=== PATIENT | male | born 1965 | race Caucasian/White ===

== ENCOUNTER 2017-01-01 07:30 | Day surgery (SDC) | payer OTHER ==
[2017-01-01 08:03] VITALS: BMI 24.7
[2017-01-01 08:23] VITALS: O2SAT 100
--- NOTE | 2017-01-01 08:51 | CP.SDSHP ---
Same Day Surgery H & P - History Proposed Procedure: EGD Pre-Op Diagnosis: SEE NOTES - Previous Medical/Surgical History Misc: Other Pain: 4.Moderate Pain - Allergies Allergies: Allergies doxycycline [From Vibramycin] Allergy (Verified 01/01/17 08:03) RASH - Physical Exam General Appearance: N Vital Signs: Vital Signs 01/01/17 08:01 Temperature 97.5 F L Pulse Rate 73 Respiratory 19 Rate Blood Pressure 109/74 O2 Sat by Pulse 100 Oximetry Mental Status: Alert & Oriented x3 Neuro: WNL Heart: WNL Lungs: WNL GI: Other - {Optional Preform as Required} Breast: WNL Abdomen: Other Rectal: Other Integument: WNL : WNL Ortho: WNL ENT: WNL - Impression Pt. Evaluated Today:Candidate for Anesthesia & Procedure: Yes - Date & Time Time: 08:51 Short Stay Discharge - Short Stay Discharge Admitting Diagnosis/Reason for Visit: FUNCTIONAL DYSPEPSIA Disposition: HOME/ ROUTINE
[2017-01-01] MEDS ORDERED: Lidocaine Hydrochloride 5 ML INJ ONE (08:52)
[2017-01-01] MEDS ORDERED: Propofol 10 mg/ml Inj (20 ML) ONE (08:52)
[2017-01-01] MEDS ORDERED: Belladonna-Phenobarbital PO ONE (09:30)
[2017-01-01] MEDS ORDERED: Pantoprazole 40 mg EC Tab PO ONE (09:30)
[2017-01-01 10:30] VITALS: TEMP 97.8
[2017-01-01 13:30] VITALS: BP 118/67; PULSE 70; RESP 14
== END 2017-01-01 11:35 | disposition home or self-care (01) ==
LOC: C.ENDO 07:30
PROVIDERS: ATTEND Specialist
DX: K20.9 Esophagitis, unspecified (principal); K30 Functional dyspepsia; K44.9 Diaphragmatic hernia without obstruction or gangrene; K29.70 Gastritis, unspecified, without bleeding
CPT/HCPCS: 43239; 88305; 88342; J2704

== ENCOUNTER 2018-05-19 08:37 | Day surgery (SDC) | payer MEDICAID ==
[2018-05-15 08:49] VITALS: BMI 24.3
[2018-05-19] MEDS ORDERED: Ciprofloxacin 400mg/200ml D5W 400 MG/200 ML BAG IVPB ONE (09:54)
[2018-05-19] MEDS ORDERED: Iohexol 240 (50 ml) ONE (09:54)
[2018-05-19] MEDS ORDERED: Lidocaine 2% Jelly (Uro-Jet) ONE (09:54)
[2018-05-19] MEDS ORDERED: Lidocaine Hydrochloride 10 ML INJ ONE (11:10)
[2018-05-19] MEDS ORDERED: Propofol 10 mg/ml Inj (20 ML) ONE (11:10)
[2018-05-19 12:45] VITALS: RESP 16
[2018-05-19 13:00] VITALS: BP 131/80; PULSE 61; TEMP 97.8; O2SAT 100
--- NOTE | 2018-05-19 19:19 | RAD ---
Date of service: 05/19/2018 PROCEDURE: Intraoperative Fluoroscopy. HISTORY: HEMATURIA FINDINGS: Fluoroscopic assistance was provided Of fluoroscopy time = 10.5 sec. Radiation dose = 0.8662 mGy. Please refer to the operative report from JAIME Rudolph.
--- NOTE | 2018-05-20 11:10 | RAD ---
Date of service: 05/19/2018 HISTORY: HEMATURIA COMPARISON: 02/19/2018 FINDINGS: BOWEL: Moderate right stool retention suggested. No definitive urolithiasis appreciated. The left robbin pelvic hyperdensity projecting of the left sacral wing is compatible with a known bone island here. BONES: Mild sacral sided asymmetrical sclerosis bordering the SI joint-not dissimilar to 02/19/2018 a another bone island projecting over the left lateral L5 vertebral body is similar in appearance OTHER FINDINGS: None. IMPRESSION: No interval urolithiasis appreciated. 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 Other findings as above.
--- NOTE | 2018-05-21 13:58 | CARD ---
APPROVED REPORT Date of service: 05/19/2018 EKG Measurement Heart [id number] <Conclusion> Normal sinus rhythm Incomplete right bundle branch block Borderline ECG
--- NOTE | 2018-05-29 03:19 | OP ---
PROCEDURE DATE: 05/19/2018 PREOPERATIVE DIAGNOSES: Hematuria, pelvic pain, and frequency. POSTOPERATIVE DIAGNOSES: Interstitial cystitis, urethral stricture. PROCEDURE: Cystoscopy, dilatation, bilateral retrograde pyelogram. DESCRIPTION OF PROCEDURE: While the patient in lithotomy position and after starting anesthesia, genitalia prepped and draped in sterile fashion. The patient given Cipro 400 mg IV piggyback. Using #18-[place] cystoscopy, a cysto started, but there were multiple areas of stricture in the bulbous urethra which were dilated. After that, cystoscopy inserted into the bladder. The bladder revealed no evidence of any tumor and no stone. [place], lateral wall within normal limits. The prostate itself not enlarged and while the scope in the veru, you can see the bladder, mild prostatic hypertrophy but no obstruction. When the bladder distended, mucosa started to bleed in multiple areas, especially the trigone and the lateral wall, typically as we see in interstitial cystitis. No mucosal lesion. Bilateral retrograde done using cone-tipped which revealed the ureter at the caliceal system and both sides normal. The patient tolerated the procedure well. After emptying the bladder, the scope removed and the patient transferred to the recovery room in stable condition. The patient will start on [place] and will be followed. Yan Rojo MD
== END 2018-05-19 13:04 | disposition home or self-care (01) ==
LOC: C.SDS 08:37
PROVIDERS: ATTEND Specialist
DX: N30.11 Interstitial cystitis (chronic) with hematuria (principal); N35.812 Other bulbous urethral stricture, male
CPT/HCPCS: 52260; 74018; 93005; C1758; J0744; J2270; Q9966